=== PATIENT | female | born 1995 | race Caucasian/White ===

== ENCOUNTER 2021-10-19 10:22 | Emergency (ER) | payer MEDICAID ==
[~2021-10-19] VITALS: Ht 167.6 cm; Wt 107.0 kg
[2021-10-19 10:51] VITALS: BP 143/102
[2021-10-19 12:14] LABS: HEMOGLOBIN 10.2 g/dL (12.0-16.0); MONOCYTES # (AUTO) 0.5 K/uL (0.8-1.0); WHITE BLOOD COUNT (AUTO) 4.6 K/uL (4.8-10.8)
[2021-10-19 12:19] LABS: BASOPHILS % (AUTO) 0.4 % (0.0-2.0); EOSINOPHILS # (AUTO) 0.1 K/uL (0-0.4); EOSINOPHILS % (AUTO) 3.1 % (0.0-4.0); HEMATOCRIT 32.3 % (36-48); LYMPHOCYTES # (AUTO) 2.1 K/uL (2.5-16.5); LYMPHOCYTES % (AUTO) 46.4 % (20.5-51.1); MEAN CORPUSCULAR HEMOGLOBIN 25 pg (27-31); MEAN CORPUSCULAR HGB CONC 32 g/dL (33-37); MEAN CORPUSCULAR VOLUME 79.8 fL (80-94); MONOCYTES % (AUTO) 11.3 % (1.7-9.3); NEUTROPHILS # (AUTO) 1.8 K/uL (1.8-7.7); NEUTROPHILS % (AUTO) 38.8 % (42.2-75.2); PLATELET COUNT (AUTO) 454 K/uL (140-450); RED BLOOD CELL COUNT(AUTO) 4.04 MIL/uL (4.20-5.40); RED CELL DISTRIBUTION WIDTH 17.4 % (11.6-13.7)
[2021-10-19 12:44] LABS: ALBUMIN 2.2 g/dL (3.4-5.0); ANION GAP 12.8 (8-16); CARBON DIOXIDE 25.4 mmol/L (21-32); CREATININE 1.3 mg/dL (0.6-1.3); POTASSIUM 4.2 mmol/L (3.5-5.1); TOTAL BILIRUBIN 0.8 mg/dL (0.0-1.0)
--- NOTE | 2021-10-19 12:55 | NUR ---
BIB SELF FOR MED CLEARANCE FOR PROTOTYPES PROGRAM . BLOOD SUGAR 247 AT THIS TIME. PMH: Filemon NIEVES SECTION 09/27/21
[2021-10-19] MEDS ORDERED: METF-352 PO (12:57)
[2021-10-19 13:12] VITALS: BP 140/99
--- NOTE | 2021-10-19 13:12 | NUR ---
Patient discharged with v/s stable. Written and verbal after care instructions given and explained. Patient alert, oriented and verbalized understanding of instructions. Ambulatory with steady gait. All questions addressed prior to discharge. ID band removed. Patient advised to follow up with PMD. Rx of metformn given. Patient educated on indication of medication including possible reaction and side effects. Opportunity to ask questions provided and answered.
== END 2021-10-19 13:12 | disposition home or self-care (01) ==
LOC: EDBD 10:22 → MED 10:22
DX: E11.9 Type 2 diabetes mellitus without complications (principal); D64.9 Anemia, unspecified; R03.0 Elevated blood-pressure reading, without diagnosis of hypertension; Z79.899 Other long term (current) drug therapy; Z88.1 Allergy status to other antibiotic agents
CPT/HCPCS: 36415; 80053; 81002; 81025; 82948; 85025; 99283